=== PATIENT | male | born 1985 | race Caucasian/White ===

== ENCOUNTER → 2016-09-29 | Outpatient (CLI) | payer OTHER | LOC: LFPA 16:27 | DX: R20.2 Paresthesia of skin (principal) ==

== ENCOUNTER 2016-10-20 16:50 | Emergency (ER) | payer OTHER ==
--- NOTE | ~2016-10-20 | ER ---
PATIENT'S NAME: LORI CARRANZA [facility] AGE: 31 Y [address] ROOM: [place] [address] LOCATION: [facility] ADMIT DATE: 10/20/2016 ER/Outpatient Report DISCHARGE DATE: 10/20/2016 FAMILY PHYSICIAN: Myrna Mayo MD ATTENDING PHYSICIAN: Madison Moran Time of Arrival: 1703. Time of Exam: 1720. CHIEF COMPLAINT: Headache. HISTORY OF PRESENT ILLNESS: The patient states he has been ill off and on for the last 5 years. He has been seeing Dr. Myrna Mayo off and on for various problems. He has been having stabbing nerve pain of his lower back, it caused numbness and tingling down both his legs. It began five years ago, but it has gotten worse in the last 3 months[address] He did see Dr. Buchanan last week. They did an MRI of his back and it was all negative. He continues to have problems with headaches. He calls the headaches a "nerve pain" of his head, he says the pain bounces around, does not seem to be in any one specific place. He has had problems with cough, fever, GERD, and extreme fatigue. He was seen today in [place] at [facility] by an infectious disease provider. Multiple lab works were drawn and they are waiting the results. That provider had recommended they see a neurologist and so when they got back to town to [place] today, they came to the ER wanting to see a neurologist. He states he has not had any kind of imaging of his head done, but has been treated for sinus infection within the last 3 months. He has had a weight loss in the last 3 months of 10 pounds. He is falling asleep at the drop of a hat according to the patient and his father. He denies having any vision changes, has not had any nasal congestion, has not had any chest pain. Denies any difficulty breathing. Has not felt pain with respirations or having a productive cough. He has had decreased appetite. No change in his bowel or bladder pattern. ALLERGIES: HE HAS NO KNOWN ALLERGIES. MEDICATIONS: No current medications. PAST MEDICAL HISTORY: 1. GERD. 2. Latent tuberculosis. 3. Night sweats. PATIENT'S NAME: LORI CARRANZA [facility] AGE: 31 Y [address] ROOM: [place], [place] [address] LOCATION: [facility] ADMIT DATE: 10/20/2016 ER/Outpatient Report DISCHARGE DATE: 10/20/2016 FAMILY PHYSICIAN: Myrna Mayo MD ATTENDING PHYSICIAN: Madison Moran PAST SURGERIES: Left eye surgery. SOCIAL HISTORY: Denies use of tobacco, drugs, or alcohol. He presents to the ER tonight accompanied by his father. REVIEW OF SYSTEMS: Negative other than those mentioned in the HPI. PHYSICAL EXAMINATION: VITAL SIGNS: He states he is 5 feet 8 inches. He weighs 67.8 kg. Blood pressure is 128/67, pulse is 76, respirations 16, temperature of 98.6 tympanic, O2 saturations 96% on room air. GENERAL: He is awake, alert, and oriented x4. SKIN: [place], warm, and dry. RESPIRATIONS: Even and nonlabored. HEENT: Pupils are equal and reactive to light. Extraocular movement is intact. Negative nystagmus. TMs are pearly white. No abnormality seen. Nasal is boggy. Oropharynx is clear posteriorly. Mucous membranes are pink and moist. NECK: Supple. No lymphadenopathy. LUNGS: Lung sounds are clear throughout. HEART: Regular rate and rhythm. ABDOMEN: Soft and nondistended. Bowel sounds are present. MUSCULOSKELETAL: He moves all extremities strongly and equally. NEUROLOGIC: Cranial nerves 2 through 12 are grossly intact. EMERGENCY ROOM COURSE: Discussed with the patient and his father that we would go ahead and do a CT scan of his head today since it had not been done yet and then go from there. We did scan his head without contrast. Radiologist reports no abnormalities are seen of the brain or skull. He does have a mild left sinusitis. We discussed those results with the patient and his father. Offered them to speak with the teleneurology as we do not have a neurologist in-house. The patient did not feel as that would really be of any benefit to him. I did offer to recheck some lab work so at least we would know his CBC and Chem panel here in the ER. He said no that Shashank would have the results for him by Sunday for those tests and he would wait to see what those results are. I encouraged them to follow up with the primary provider and return to the ER as needed. IMPRESSION: 1. Headache. 2. Nerve pain. PATIENT'S NAME: LORI CARRANZA [facility] AGE: 31 Y [address] ROOM: [place] [address] LOCATION: ED ADMIT DATE: 10/20/2016 ER/Outpatient Report DISCHARGE DATE: 10/20/2016 FAMILY PHYSICIAN: Myrna Mayo MD ATTENDING PHYSICIAN: Madison Moran 3. Gastroesophageal reflux disease. PLAN: Home, rest. Continue treatments as recommended by Infectious Disease doctor and Dr. Myrna Mayo, their primary provider. Follow up with Dr. Myrna Mayo in the next 2-3 days. The patient verbalized understanding. RUPESH CARTAGENA APRN FOR MD PADMA JARRELL/yamilet /[id number] d: 10/21/16 0207 t: 10/22/16 1116, OUTPATIENT REPORT
== END 2016-10-20 18:17 | disposition disaster alternative care site (69) ==
LOC: GMED 16:50
DX: R51 Headache (principal); M79.2 Neuralgia and neuritis, unspecified; K21.9 Gastro-esophageal reflux disease without esophagitis; Z98.890 Other specified postprocedural states

== ENCOUNTER → 2016-10-30 | Outpatient (CLI) | payer OTHER | END | disposition disaster alternative care site (69) | LOC: GRAD 08:24 | DX: R53.1 Weakness (principal); J34.89 Other specified disorders of nose and nasal sinuses ==

== ENCOUNTER → 2016-11-14 | Outpatient (CLI) | payer OTHER ==
--- NOTE | ~2016-11-14 | NDGEN ---
PATIENT'S NAME: LORI CARRANZA [facility] AGE: 31 Y [address] ROOM: [place] [address] LOCATION: [facility] ADMIT DATE: 11/14/2016 Neurodiagnostics DISCHARGE DATE: FAMILY PHYSICIAN: Myrna Mayo MD ATTENDING PHYSICIAN: JOSEE DELUCA PROCEDURE: NERVE CONDUCTION EMG STUDY. DATE OF PROCEDURE: 11/14/2016 CLINICAL DIAGNOSIS: THIS IS A 31-YEAR-OLD MALE PATIENT WHO HAS BEEN WORKED UP BY MULTIDISCIPLINARY GROUPS OF DOCTORS BASED UPON THE PATIENT HAVING SOME VARIABLE COMPLAINTS, MOSTLY OF ISSUES CONCERNING SOME NUMBNESS AND TINGLING OF SOME OF HIS EXTREMITIES, AT TIMES FEELINGS THAT HE IS "SICK" WITH A FEW MORE INFECTIONS THAN WOULD BE EXPECTED, SOME WEIGHT LOSS BUT NOT UNDERNOURISHED, SOME QUESTIONABLE FEVER BY HISTORY, BUT PRESENTLY HAS NOT BEEN FEBRILE. NERVE CONDUCTION STUDIES AND EMG WERE PERFORMED AFTER A THOROUGH NEUROLOGIC EXAM, BOTH IN THE CLINIC AND TODAY. THE PATIENT DEMONSTRATED FULL POWER IN THE PROXIMAL AND DISTAL MUSCLES OF THE BILATERAL UPPER EXTREMITIES. REFLEXES WERE SYMMETRIC AT +2 AT THE BICEPS AND TRICEPS. PATELLAR REFLEXES +2 AND ANKLE JERK REFLEXES +1. PLANTAR REFLEXES WERE DOWNGOING. THE PATIENT'S GAIT WAS NORMAL AND NARROW BASED. NEGATIVE ROMBERG. HE APPEARED TO BE WELL. NO EVIDENCE OF ANY MUSCLE ATROPHY OR THINNING OF MUSCLE BULK, BUT HE WAS A BIT THIN DUE TO LESS FAT, BUT APPEARED TO BE NOURISHED. MEDIAN AND ULNAR MOTOR AND SENSORY NERVES WERE STIMULATED. THE MEDIAN MOTOR ONSET LATENCIES WERE WELL WITHIN NORMAL LIMITS AROUND 3 M/SEC WITH VERY NORMAL AMPLITUDES AT GREATER THAN 3 MV TO HIGH 12 MV. THE NERVE CONDUCTION VELOCITIES WERE WELL WITHIN NORMAL LIMITS IN THE 50 M/SEC RANGE. THE ULNAR MOTOR ONSET LATENCIES WERE ALL WITHIN NORMAL LIMITS WELL AMPLITUDES BEING NORMAL AND NERVE CONDUCTION VELOCITIES IN THE 50-60 RANGE. PERONEAL MOTOR ONSET LATENCIES AND TIBIAL MOTOR ONSET LATENCIES WELL AMPLITUDES WERE ALL RECORDED TO BE NORMAL LIMITS WITH NORMAL NERVE CONDUCTION VELOCITIES, VERY FAST INTO THE 50S M/SEC RANGE OF THE LOWER EXTREMITIES. SENSORY NERVE CONDUCTION STUDIES WERE ALL WITHIN NORMAL LIMITS, OF THE UPPER AND LOWER EXTREMITY SHOWING NORMAL PEAK ONSET LATENCIES. AMPLITUDES WERE ALL WITHIN NORMAL LIMITS AND NERVE CONDUCTION VELOCITIES WELL WITHIN THE RANGE OF NORMAL FINDINGS OF MID 40S TO MID 50 RANGE M/SECOND. F-WAVE STUDIES WERE ALSO NORMAL. BILATERAL NEEDLE EMG WAS PERFORMED. THE NEEDLE WAS PLACED INTO THE BILATERAL DELTOIDS, BICEPS, TRICEPS, AND PRONATOR TERES BILATERALLY WITH THE MUSCLE AT REST. THERE WAS NO EVIDENCE OF ANY ABNORMAL SPONTANEOUS ELECTRICAL ACTIVITY, SUCH FIBRILLATION POTENTIALS OR POSITIVE SHARP WAVES OR ANY INCREASED INSERTIONAL ACTIVITY. IN THE PROXIMAL ANTERIOR DELTOID, THERE WAS PERSISTENCE OF MUSCLE SPASMS ONLY WITH THE MUSCLE AT REST; WITH THE ARM REPOSITIONED PATIENT'S NAME: LORI CARRANZA [facility] AGE: 31 Y [address] ROOM: [place] [address] LOCATION: [facility] ADMIT DATE: 11/14/2016 Neurodiagnostics DISCHARGE DATE: FAMILY PHYSICIAN: Myrna Mayo MD ATTENDING PHYSICIAN: JOSEE DELUCA MULTIPLE TIMES AND STILL SHOWED FREQUENT MUSCLE SPASMS. THE LOWER EXTREMITIES, THE NEEDLE WAS PLACED INTO THE BILATERAL QUADRICEPS, TIBIALIS ANTERIOR MUSCLE, AND GASTROCNEMIUS MUSCLES. ALSO IN THE LOWER EXTREMITIES, THERE WAS NO EVIDENCE OF ANY SPONTANEOUS ELECTRICAL ACTIVITY SUCH FIBRILLATIONS OR POSITIVE SHARP WAVES. THERE WAS NO EVIDENCE OF ANY INCREASED INSERTIONAL ACTIVITY. MUSCLE SPASMS WERE NOTED IN THE TIBIALIS ANTERIOR MUSCLES ONLY WITH THE MUSCLE AT REST. THERE WAS FULL RECRUITMENT OF MOTOR UNIT ACTION POTENTIALS SEEN IN THE BILATERAL UPPER AND LOWER EXTREMITIES. THESE MOTOR UNITS WERE OF NORMAL SIZES, DURATIONS, AND PHASES. THEY ACTIVATED EVENLY WITH THE PATIENT GENERATING FULL RECRUITMENT FREQUENCIES. IMPRESSION: The results of the nerve conduction studies of the bilateral upper and lower extremities were all within normal limits and would not be consistent with polyneuropathy or focal neuropathy. Along with the findings on needle EMG, there was normal EMG pattern except perhaps for some increased muscle spasms at the proximal arms in the deltoids as well as in the legs at the tibialis anterior muscles. The muscle spasms likely a benign finding and nonspecific. The needle EMG does not support a motor neuron disease process. Recruitment of motor units was full of normal sizes and would not be consistent with a myopathy or a process such as a myositis or a motor neuron disease process. All the parameters of nerve conduction studies and EMG were completely within normal limits. MD BELKIS TORRES/yamilet /[id number] dtt: 12/05/16 1612 , JOSEE DELUCA dtd: 11/14/16 1922
== END | disposition disaster alternative care site (69) ==
LOC: GNEU 16:30
DX: R20.0 Anesthesia of skin (principal); R20.2 Paresthesia of skin; R53.1 Weakness